=== PATIENT | female | born 1960 | race Caucasian/White ===

== ENCOUNTER → 2021-03-31 | Outpatient (CLI) | payer OTHER ==
[2021-04-01 11:43] LABS: Candida species (DNA Probe) Negative (NEGATIVE); G. vaginalis (DNA Probe) Positive (NEGATIVE); T. vaginalis (DNA Probe) Negative (NEGATIVE)
[2021-04-02 04:08] LABS: CHLAMYDIA TRACHOMATIS, NAA Negative (Negative)
== END ==
LOC: LAB 12:00 → LAB SHORT 12:00
PROVIDERS: Physician Assistant
DX: R10.30 Lower abdominal pain, unspecified (principal)
CPT/HCPCS: 87480; 87491; 87510; 87591; 87660

== ENCOUNTER 2023-07-28 09:54 | Observation (INO) | payer OTHER ==
[~2023-07-28] VITALS: Ht 167.6 cm; Wt 56.0 kg
[2023-07-28] MEDS ORDERED: Trazodone HCl300 MG PO (10:30)
[2023-07-28] MEDS ORDERED: TRAM50 PO (10:30)
[2023-07-28] MEDS ORDERED: CYCL10 PO (10:31)
[2023-07-28 11:07] LABS: BASOPHILS ABSOLUTE AUTO 0.05 K/mm3 (0.00-0.23); BASOPHILS PERCENT AUTO 1 % (0-2); EOSINOPHILS ABSOLUTE AUTO 0.08 K/mm3 (0.00-0.68); EOSINOPHILS PERCENT AUTO 1 % (0-6); Hematocrit 38.4 % (33.0-51.0); Hemoglobin 12.7 g/dL (11.5-16.0); IMMATURE GRAN ABSOLUTE AUTO 0.01 K/mm3 (0.00-0.10); IMMATURE GRAN PERCENT AUTO 0 % (0-1); LYMPHOCYTES ABSOLUTE AUTO 1.53 K/mm3 (0.84-5.20); LYMPHOCYTES PERCENT AUTO 24 % (21-46); MONOCYTES PERCENT AUTO 10 % (4-13); Mean Corpuscular HGB 28.9 pg (26.0-34.0); Mean Corpuscular HGB Conc 33.1 g/dL (31.5-36.5); Mean Corpuscular Volume 87 fL (80-100); Mean Platelet Volume 8.8 fL (9.1-12.4); NEUTROPHILS ABSOLUTE AUTO 4.05 K/mm3 (1.96-9.15); NEUTROPHILS PERCENT AUTO 64 % (41-73); Platelet Count 303 K/mm3 (150-400); RDW Coefficient Variation 13.1 % (11.7-14.2); RDW Standard Deviation 41.1 fL (35.1-46.3); White Blood Cell Count 6.32 K/mm3 (4.00-11.30)
[2023-07-28 11:32] LABS: Albumin, Blood 3.8 g/dL (3.4-5.0); Albumin/Globulin Ratio 1.2 (0.8-1.8); Bilirubin, Total 0.7 mg/dL (0.1-1.0); Bun/Creatinine Ratio 13.6 (12.0-20.0); Calcium, Blood 9.3 mg/dL (8.5-10.1); Creatinine, Blood 0.74 mg/dL (0.40-1.00); Globulin, Blood 3.2 g/dL (2.2-4.0); Potassium, Blood 3.9 mmol/L (3.5-5.5)
[2023-07-28] MEDS ORDERED: Atarax10 MG (11:50)
[2023-07-28 17:25] VITALS: BP 143/106
--- NOTE | 2023-07-28 18:56 | NUR ---
LATE ENTRY/1715: RECEIVED REPORT FROM MEDICAL APPLIANCE MAKER. RECEIVED PT FROM ER VIA W/C. PLACED IN BED, MADE COMFORTABLE, ORIENTED TO ROOM & UNIT ROUTINE. IS A&O X 4, VSS, INDEPENDENT FOR RESTROOM USE, PLEASANT & COOPERATIVE WITH ALL CARE. MEDICATED FOR C/O PAIN PER EMAR WITH GOOD RELIEF STATED BY PT. REPORT GIVEN TO NOC RN AT 6014.
[2023-07-28 20:35] VITALS: BP 129/79
[2023-07-29 05:49] VITALS: BP 107/83
[2023-07-29 05:52] LABS: BASOPHILS ABSOLUTE AUTO 0.04 K/mm3 (0.00-0.23); BASOPHILS PERCENT AUTO 1 % (0-2); EOSINOPHILS ABSOLUTE AUTO 0.09 K/mm3 (0.00-0.68); EOSINOPHILS PERCENT AUTO 2 % (0-6); Hematocrit 37.9 % (33.0-51.0); Hemoglobin 12.5 g/dL (11.5-16.0); IMMATURE GRAN PERCENT AUTO 0 % (0-1); LYMPHOCYTES ABSOLUTE AUTO 1.81 K/mm3 (0.84-5.20); LYMPHOCYTES PERCENT AUTO 33 % (21-46); MONOCYTES ABSOLUTE AUTO 0.49 K/mm3 (0.16-1.47); MONOCYTES PERCENT AUTO 9 % (4-13); Mean Corpuscular HGB 28.9 pg (26.0-34.0); Mean Corpuscular Volume 88 fL (80-100); Mean Platelet Volume 8.8 fL (9.1-12.4); NEUTROPHILS ABSOLUTE AUTO 3.08 K/mm3 (1.96-9.15); NEUTROPHILS PERCENT AUTO 56 % (41-73); Platelet Count 281 K/mm3 (150-400); RDW Coefficient Variation 12.9 % (11.7-14.2); RDW Standard Deviation 41.3 fL (35.1-46.3); Red Blood Cell Count 4.33 M/mm3 (3.80-5.20); White Blood Cell Count 5.51 K/mm3 (4.00-11.30)
[2023-07-29 06:44] LABS: Albumin, Blood 3.5 g/dL (3.4-5.0); Albumin/Globulin Ratio 1.2 (0.8-1.8); Bilirubin, Total 0.6 mg/dL (0.1-1.0); Calcium, Blood 8.8 mg/dL (8.5-10.1); Creatinine, Blood 0.68 mg/dL (0.40-1.00); Globulin, Blood 2.9 g/dL (2.2-4.0); Potassium, Blood 3.9 mmol/L (3.5-5.5); Total Protein, Blood 6.4 g/dL (6.4-8.2)
--- NOTE | 2023-07-29 06:51 | NUR ---
SHIFT SUMMARY NEW IV PLACED PER PT REQUEST. PRN OXYCODONE GIVEN X1 FOR PAIN. NPO, NO OTHER EVENTS OVERNIGHT.
[2023-07-29 07:32] VITALS: BP 108/82
--- NOTE | 2023-07-29 08:30 | NUR ---
pt laying in bed wakes easily, a/ox4, pleasant and coopertive with care, follows commands well, states pain is ok this am, explained to her she can't have any more pain meds until after hidda scan, she verbalized understanding, lungs are clear t/o, on r/a, resp even and unlabored, no cough noted, hrr, no edema noted, ppp+2, cap refill<3sec, vs stable, afebrile, piv to rfa infusing ns @125ml/hr, site is clear and patent, btx4, abd flat soft nontender, voids without diff, skin c/w/d, maew, hong, call light in reach.
[2023-07-29 15:06] VITALS: BP 128/84
--- NOTE | 2023-07-29 16:34 | NUR ---
pt is able to have clear liquids, she became tearful not being able to eat, Dr. Edwards was contacted for diet, mri was ordered for tomorrow am, may be done tonight, report given to Mary SANFORD. call light in reach.
--- NOTE | 2023-07-29 18:16 | NUR ---
note PT ALERT AND ORINETED. DR TOMLINSON CALLED AFTER HYDA SCAN TO INQUIRE IF PT CAN EAT. ORDER RECEIVED. PT TRYING CLEAR LIQUIDS TO START. NO CHANGE TO HER ABD SORENESS/PAIN AFTER EATING. SHE IS GOING VERY SLOW. DENIED NAUSEA AFTER EATING. VSS. CONTINUE POC.
[2023-07-29 19:42] VITALS: BP 131/84
[2023-07-30 04:47] VITALS: BP 112/71
[2023-07-30 05:50] LABS: BASOPHILS ABSOLUTE AUTO 0.03 K/mm3 (0.00-0.23); BASOPHILS PERCENT AUTO 1 % (0-2); EOSINOPHILS ABSOLUTE AUTO 0.08 K/mm3 (0.00-0.68); EOSINOPHILS PERCENT AUTO 1 % (0-6); Hematocrit 34.5 % (33.0-51.0); Hemoglobin 11.3 g/dL (11.5-16.0); IMMATURE GRAN ABSOLUTE AUTO 0.02 K/mm3 (0.00-0.10); IMMATURE GRAN PERCENT AUTO 0 % (0-1); LYMPHOCYTES ABSOLUTE AUTO 1.35 K/mm3 (0.84-5.20); LYMPHOCYTES PERCENT AUTO 21 % (21-46); MONOCYTES ABSOLUTE AUTO 0.71 K/mm3 (0.16-1.47); MONOCYTES PERCENT AUTO 11 % (4-13); Mean Corpuscular HGB 28.6 pg (26.0-34.0); Mean Corpuscular HGB Conc 32.8 g/dL (31.5-36.5); Mean Corpuscular Volume 87 fL (80-100); NEUTROPHILS ABSOLUTE AUTO 4.15 K/mm3 (1.96-9.15); NEUTROPHILS PERCENT AUTO 65 % (41-73); Platelet Count 267 K/mm3 (150-400); RDW Coefficient Variation 12.8 % (11.7-14.2); Red Blood Cell Count 3.95 M/mm3 (3.80-5.20); White Blood Cell Count 6.34 K/mm3 (4.00-11.30)
[2023-07-30 06:08] LABS: Albumin/Globulin Ratio 1.2 (0.8-1.8); Bilirubin, Total 0.5 mg/dL (0.1-1.0); Bun/Creatinine Ratio 12.7 (12.0-20.0); Calcium, Blood 8.1 mg/dL (8.5-10.1); Creatinine, Blood 0.63 mg/dL (0.40-1.00); Globulin, Blood 2.6 g/dL (2.2-4.0); Total Protein, Blood 5.6 g/dL (6.4-8.2)
--- NOTE | 2023-07-30 06:32 | NUR ---
SHIFT SUMMARY PRN OXYCODONE GIVEN X1 PER REQUEST FOR PAIN WITH POSITIVE EFFECT. PT IV IN THE R FOREARM INFILTRATED. NEW IV PLACED IN THE RIGHT HAND. NO N/V, NO OTHER EVENTS OVERNIGHT. NPO AT MIDNIGHT FOR MRCP TODAY.
[2023-07-30 07:17] VITALS: BP 120/76
--- NOTE | 2023-07-30 09:00 | NUR ---
pt sleeping, wakes easily, states she had a good nights rest last night, a/ox4, pleasant and cooperative with care, follows commands well, denies pain this am, lungs are clear t/o, resp even and unlabored, no cough noted, on r/a, hrr, no edema noted, piv to right wrist, ns infusing as ordered, btx4, abd flat soft nontender, voids without diff, skin c/w/d, maew, up ad erick in room, hong, call light in reach.
--- NOTE | 2023-07-30 12:05 | NUR ---
pt had her mrcp, Dr. Edwards in room talking to her, gave a verbal order for regular food, ordered lunch. she wants to keep her iv fluids off at this time as she is drinking. call light in reach.
[2023-07-30] MEDS ORDERED: ONDA4 PO (14:16)
--- NOTE | 2023-07-30 14:45 | NUR ---
Pt has been discharged to home, iv removed intact, went over discharge instructions with her, she verbalized understanding, new med faxed to [email or web address]. left via wheelchair with event planning manager and friend in attendence.
== END 2023-07-30 14:48 | disposition home or self-care (01) ==
LOC: ER 09:54 → MEDS 09:55
PROVIDERS: Family Medicine; ADMIT Internal Medicine
DX: K82.8 Other specified diseases of gallbladder (principal); R10.11 Right upper quadrant pain; F10.11 Alcohol abuse, in remission; F17.201 Nicotine dependence, unspecified, in remission; F41.9 Anxiety disorder, unspecified; F32.A Depression, unspecified
CPT/HCPCS: 36415; 74176; 74181; 76705; 78226; 80053; 83690; 85025; 93005; 93010; 96374; 96375; 99285-25; A9270; A9537; G0378; J1885; J3010; J7030

== ENCOUNTER 2023-09-05 12:39 | Observation (INO) | payer OTHER ==
[~2023-09-05] VITALS: Ht 167.6 cm; Wt 54.3 kg
[~2023-09-05 12:39] MED LIST: Atarax10 MG PO; CYCL10 PO; ONDA4 PO; TRAM50 PO; TRAZ100 PO
[2023-09-05 13:24] LABS: Source, Urine Clean Catch
[2023-09-05 13:26] LABS: BASOPHILS ABSOLUTE AUTO 0.04 K/mm3 (0.00-0.23); BASOPHILS PERCENT AUTO 1 % (0-2); EOSINOPHILS ABSOLUTE AUTO 0.04 K/mm3 (0.00-0.68); EOSINOPHILS PERCENT AUTO 1 % (0-6); Hematocrit 32.3 % (33.0-51.0); Hemoglobin 11.3 g/dL (11.5-16.0); IMMATURE GRAN ABSOLUTE AUTO 0.01 K/mm3 (0.00-0.10); IMMATURE GRAN PERCENT AUTO 0 % (0-1); LYMPHOCYTES ABSOLUTE AUTO 1.03 K/mm3 (0.84-5.20); LYMPHOCYTES PERCENT AUTO 14 % (21-46); MONOCYTES ABSOLUTE AUTO 0.61 K/mm3 (0.16-1.47); MONOCYTES PERCENT AUTO 9 % (4-13); Mean Corpuscular HGB 29.7 pg (26.0-34.0); Mean Corpuscular Volume 85 fL (80-100); Mean Platelet Volume 9.1 fL (9.1-12.4); NEUTROPHILS ABSOLUTE AUTO 5.43 K/mm3 (1.96-9.15); NEUTROPHILS PERCENT AUTO 76 % (41-73); Platelet Count 353 K/mm3 (150-400); RDW Coefficient Variation 14.8 % (11.7-14.2); RDW Standard Deviation 45.3 fL (35.1-46.3); White Blood Cell Count 7.16 K/mm3 (4.00-11.30)
[2023-09-05 13:28] LABS: Appearance, Urine Clear (Clear); Bilirubin, Urine Neg (Neg); Blood, Urine 1+ (Neg); Color, Urine Yellow (P-Yellow); Glucose Qualitative, Urine Neg (Neg); Ketones, Urine Neg (Neg); Leukocyte Esterase, Urine Neg (Neg); Nitrite, Urine Neg (Neg); Protein, Urine Neg (Neg); Urobilinogen, Urine NORM (Normal)
[2023-09-05 13:39] LABS: Bacteria Rare /hpf; Squamous Epithelial Cells Rare /hpf (Few); White Blood Cells, Urine 0-2 /hpf (0-5)
[2023-09-05 13:55] LABS: Albumin, Blood 3.8 g/dL (3.4-5.0); Albumin/Globulin Ratio 1.2 (0.8-1.8); Bun/Creatinine Ratio 28.8 (12.0-20.0); Calcium, Blood 9.1 mg/dL (8.5-10.1); Creatinine, Blood 0.45 mg/dL (0.40-1.00); Globulin, Blood 3.2 g/dL (2.2-4.0)
[2023-09-05] MEDS ORDERED: CARAFATE1 GM/10 M1 (21:09)
--- NOTE | 2023-09-06 03:35 | NUR ---
ASSUMED CARE PATIENT ARRIVED FROM ER VIA WHEELCHAIR. PATIENT ABLE TO STAND AND TRANSFER TO BED INDEPENDENTLY. BELONGINGS IN ROOM WITH PATIENT. NO FAMILY OR VISITORS. 20G TO RT WRIST SALINE LOCKED. REPORT RECEIVED FROM CLARIBEL WITT.
[2023-09-06 03:56] VITALS: BP 112/70
[2023-09-06 04:07] LABS: BASOPHILS ABSOLUTE AUTO 0.03 K/mm3 (0.00-0.23); BASOPHILS PERCENT AUTO 1 % (0-2); EOSINOPHILS ABSOLUTE AUTO 0.11 K/mm3 (0.00-0.68); EOSINOPHILS PERCENT AUTO 2 % (0-6); Hematocrit 30.9 % (33.0-51.0); Hemoglobin 10.6 g/dL (11.5-16.0); IMMATURE GRAN ABSOLUTE AUTO 0.01 K/mm3 (0.00-0.10); IMMATURE GRAN PERCENT AUTO 0 % (0-1); LYMPHOCYTES ABSOLUTE AUTO 1.56 K/mm3 (0.84-5.20); LYMPHOCYTES PERCENT AUTO 34 % (21-46); MONOCYTES ABSOLUTE AUTO 0.67 K/mm3 (0.16-1.47); MONOCYTES PERCENT AUTO 15 % (4-13); Mean Corpuscular HGB 29.4 pg (26.0-34.0); Mean Corpuscular HGB Conc 34.3 g/dL (31.5-36.5); Mean Corpuscular Volume 86 fL (80-100); Mean Platelet Volume 8.8 fL (9.1-12.4); NEUTROPHILS ABSOLUTE AUTO 2.25 K/mm3 (1.96-9.15); NEUTROPHILS PERCENT AUTO 49 % (41-73); Platelet Count 312 K/mm3 (150-400); Red Blood Cell Count 3.61 M/mm3 (3.80-5.20); White Blood Cell Count 4.63 K/mm3 (4.00-11.30)
[2023-09-06 04:29] LABS: Albumin, Blood 3.1 g/dL (3.4-5.0); Albumin/Globulin Ratio 1.1 (0.8-1.8); Bilirubin, Total 4.9 mg/dL (0.1-1.0); Bun/Creatinine Ratio 17.5 (12.0-20.0); Calcium, Blood 8.1 mg/dL (8.5-10.1); Creatinine, Blood 0.46 mg/dL (0.40-1.00); Globulin, Blood 2.7 g/dL (2.2-4.0); Potassium, Blood 3.4 mmol/L (3.5-5.5); Total Protein, Blood 5.8 g/dL (6.4-8.2)
--- NOTE | 2023-09-06 06:24 | NUR ---
SHIFT SUMMARY PATIENT SLEPT T/O SHIFT SINCE ARRIVING FROM ER. NO URINE OUTPUT AND NO BM. NO FAMILY OR VISITORS TO BEDSIDE. NO OTHER CHANGES THIS SHIFT.
[2023-09-06 08:30] VITALS: BP 122/75
--- NOTE | 2023-09-06 09:07 | NUR ---
AM NOTE... ASSUMED CARE OF PT AT 0700. PT IS A&Ox4. PT WAS SLEEPING PRIOR TO THIS ASSESSMENT. VS STABLE. PT IS TO HAVE AN MRI AROUND 1200 TODAY. PT CURRENTLY DENIES ANY N/V. SHE HAS MINIMAL ABD PAIN AT THIS TIME. CALL LIGHT IN REACH WILL CONTINUE TO MONITOR.
[2023-09-06 09:42] VITALS: BP 117/83
--- NOTE | 2023-09-06 13:31 | NUR ---
Pt. is awake in bed and welcomes my visit. Pts. mother is at bedside. Pt. is pleasant but unsettled by her unknown diagnosis and the lack of specialists that are locally available. Listen with empathy and a calming presence. Seek to normalize the Pt. experience. Pt. displays evidence of awareness and engagement. Prayed with the Pt. Pt. and Pts. mother verbalize gratitude for the Spiritual Care visit.
[2023-09-06 16:57] VITALS: BP 116/78
--- NOTE | 2023-09-06 17:16 | NUR ---
SHIFT SUMMARY... NO ACUTE NEGATIVE CHANGES NOTED THIS SHIFT. PTS VS STABLE. PT C/O OF 05/11 RUQ PAIN, SHE WAS MEDICATED PER EMAR WITH IV FENTANYL WITH GOOD RESULTS. PT HAS BEEN UP IN THE ROOM WALKING OUT OF THE UNIT AND TOLERATING THIS WELL. WILL CONTINUE TO MONITOR UNTIL REPORT IS GIVEN TO ONCOMING RN.
[2023-09-06 19:55] VITALS: BP 115/76
[2023-09-07 03:25] LABS: BASOPHILS ABSOLUTE AUTO 0.03 K/mm3 (0.00-0.23); BASOPHILS PERCENT AUTO 0 % (0-2); EOSINOPHILS ABSOLUTE AUTO 0.09 K/mm3 (0.00-0.68); EOSINOPHILS PERCENT AUTO 1 % (0-6); Hematocrit 31.6 % (33.0-51.0); Hemoglobin 10.9 g/dL (11.5-16.0); IMMATURE GRAN ABSOLUTE AUTO 0.02 K/mm3 (0.00-0.10); IMMATURE GRAN PERCENT AUTO 0 % (0-1); LYMPHOCYTES ABSOLUTE AUTO 1.22 K/mm3 (0.84-5.20); LYMPHOCYTES PERCENT AUTO 17 % (21-46); MONOCYTES ABSOLUTE AUTO 0.85 K/mm3 (0.16-1.47); MONOCYTES PERCENT AUTO 12 % (4-13); Mean Corpuscular HGB 29.1 pg (26.0-34.0); Mean Corpuscular HGB Conc 34.5 g/dL (31.5-36.5); Mean Corpuscular Volume 85 fL (80-100); Mean Platelet Volume 8.9 fL (9.1-12.4); NEUTROPHILS ABSOLUTE AUTO 4.95 K/mm3 (1.96-9.15); NEUTROPHILS PERCENT AUTO 69 % (41-73); Platelet Count 346 K/mm3 (150-400); RDW Coefficient Variation 15.1 % (11.7-14.2); Red Blood Cell Count 3.74 M/mm3 (3.80-5.20); White Blood Cell Count 7.16 K/mm3 (4.00-11.30)
[2023-09-07 03:47] LABS: Albumin/Globulin Ratio 1.1 (0.8-1.8); Bilirubin, Direct 4.4 mg/dL (0.0-0.3); Bilirubin, Total 4.9 mg/dL (0.1-1.0); Bun/Creatinine Ratio 19.1 (12.0-20.0); Calcium, Blood 8.3 mg/dL (8.5-10.1); Creatinine, Blood 0.52 mg/dL (0.40-1.00); Globulin, Blood 2.7 g/dL (2.2-4.0); Potassium, Blood 3.7 mmol/L (3.5-5.5); Total Protein, Blood 5.7 g/dL (6.4-8.2)
[2023-09-07 04:59] VITALS: BP 125/67
--- NOTE | 2023-09-07 06:43 | NUR ---
SHIFT SUMMARY PATIENT SLEPT T/O SHIFT. PATIENT EXPERIENCED RUQ AFTER EATING REGULAR DIET DINNER. MEDICATED WITH FENTANYL 50MCG IV X 2, TORADOL 30MG IV X 1, AND TRAMADOL 100MG PO X 1 THIS SHIFT. DIET CHANGED TO LOW FAT WITH EDUCATION ON POSSIBLE NEED TO DECREASE TO CLEAR LIQUIDS IF PAIN PERSISTS. NO OTHER CHANGES THIS SHIFT.
--- NOTE | 2023-09-07 08:23 | NUR ---
AM NOTE... ASSUMED CARE OF PT AT 0700. PT IS A&Ox4 AND IND IN THE ROOM. PT C/O OF 4/10 RUQ PAIN, MEDICATED PER EMAR. PT IS ON RA WITH O2 SATS>95% L/S CLEAR T/O. NO SWELLING OR EDEMA IS NOTED ON THIS ASSESSMENT. VS STABLE. PLANS TO TRANSFER TO A HIGHER LEVEL OF CARE. WILL CONTINUE TO MONITOR.
[2023-09-07 09:53] VITALS: BP 104/70
--- NOTE | 2023-09-07 13:24 | NUR ---
PT TRANSFER.... REPORT GIVEN TO KERRIE SANFORD ON MEDICAL FLOOR. ALL OF THE PT'S BELONGINGS PACKED BY THE PT AND SENT WITH THE PT AT THE TIME OF TRANSFER.
[2023-09-07 13:42] VITALS: BP 116/80
--- NOTE | 2023-09-07 14:55 | NUR ---
ASSUMED CARE OF PATIENT UPON HER TRANSFER FROM ICU 14 AT 1335. SHE IS A&O X 4, INDEPENDENT IN THE ROOM. STATED HER PAIN IS "MANAGEABLE" AT THIS TIME. ORIENTED TO ROOM, CALL LIGHT, UNIT ROUTINE. WILL CONTINUE TO MONITOR.
[2023-09-07 15:21] VITALS: BP 116/80
--- NOTE | 2023-09-07 15:40 | NUR ---
PT IS A COBRA TRANSFER TO [facility] IN [place], COBRA PACKET COMPLETED, SIGNATURE OBTAINED, TRANSPORT SET UP FOR 1630, REPORT TO BE CALLED BY BEDSIDE RN TO [phone]
--- NOTE | 2023-09-07 16:34 | NUR ---
PATIENT TRANSFERRED TO [facility] FOR POTENTIAL ERCP. MEDIATED FOR PAIN PRIOR TO TRANSFER. GAVE TELEPHONE REPORT TO REGGIE SANFORD AT 1625. OFF UNIT VIA AMBULANCE AT 1631. NO PERSONAL BELONGINGS LEFT BEHIND IN ROOM.
== END 2023-09-07 16:28 | disposition short-term general hospital (02) ==
LOC: ER 12:39 → ERHOLD 12:40 → ICUE 12:40 → MEDS 09-07 13:35
PROVIDERS: Emergency Medicine; Family Medicine; Internal Medicine; ADMIT Internal Medicine
DX: R17 Unspecified jaundice (principal); Z79.899 Other long term (current) drug therapy; E80.6 Other disorders of bilirubin metabolism; F10.11 Alcohol abuse, in remission; F32.9 Major depressive disorder, single episode, unspecified; G89.29 Other chronic pain
CPT/HCPCS: 36415; 74181; 76705; 80053; 81001; 82248; 83690; 85025; 96361; 96374; 96375; 96376; 99285-25; A9270; G0378; J1885; J2270; J3010; J7030

== ENCOUNTER 2023-09-18 17:32 | Emergency (ER) | payer OTHER ==
[~2023-09-18] VITALS: Ht 167.6 cm; Wt 52.6 kg
[~2023-09-18 17:32] MED LIST changes: +CARAFATE1 GM/10 M1
[2023-09-18 18:30] LABS: BASOPHILS ABSOLUTE AUTO 0.01 K/mm3 (0.00-0.23); BASOPHILS PERCENT AUTO 0 % (0-2); EOSINOPHILS ABSOLUTE AUTO 0.01 K/mm3 (0.00-0.68); EOSINOPHILS PERCENT AUTO 0 % (0-6); Hematocrit 39.2 % (33.0-51.0); IMMATURE GRAN ABSOLUTE AUTO 0.01 K/mm3 (0.00-0.10); IMMATURE GRAN PERCENT AUTO 0 % (0-1); LYMPHOCYTES ABSOLUTE AUTO 0.36 K/mm3 (0.84-5.20); LYMPHOCYTES PERCENT AUTO 5 % (21-46); MONOCYTES ABSOLUTE AUTO 0.08 K/mm3 (0.16-1.47); MONOCYTES PERCENT AUTO 1 % (4-13); Mean Corpuscular HGB 29.8 pg (26.0-34.0); Mean Corpuscular HGB Conc 33.2 g/dL (31.5-36.5); Mean Corpuscular Volume 90 fL (80-100); NEUTROPHILS ABSOLUTE AUTO 6.75 K/mm3 (1.96-9.15); NEUTROPHILS PERCENT AUTO 94 % (41-73); Platelet Count 409 K/mm3 (150-400); RDW Coefficient Variation 14.3 % (11.7-14.2); RDW Standard Deviation 47.3 fL (35.1-46.3); Red Blood Cell Count 4.36 M/mm3 (3.80-5.20); White Blood Cell Count 7.22 K/mm3 (4.00-11.30)
[2023-09-18 19:13] LABS: Albumin, Blood 3.7 g/dL (3.4-5.0); Bilirubin, Total 1.9 mg/dL (0.1-1.0); Calcium, Blood 9.2 mg/dL (8.5-10.1); Creatinine, Blood 0.59 mg/dL (0.40-1.00); Globulin, Blood 3.8 g/dL (2.2-4.0); Potassium, Blood 3.3 mmol/L (3.5-5.5); Total Protein, Blood 7.5 g/dL (6.4-8.2)
[2023-09-18 21:17] VITALS: BP 103/57
== END 2023-09-19 00:06 | disposition short-term general hospital (02) ==
LOC: ER 17:32
PROVIDERS: Physician Assistant
DX: K83.09 Other cholangitis (principal); K85.90 Acute pancreatitis without necrosis or infection, unspecified; R00.0 Tachycardia, unspecified; R74.01 Elevation of levels of liver transaminase levels; Z96.89 Presence of other specified functional implants; Z79.899 Other long term (current) drug therapy
CPT/HCPCS: 36415; 74177; 80053; 83605; 83690; 85025; 87040; 87077; 87186; 93005; 93010; 96361; 96374; 96375; 99285-25; J0153; J1170; J2405; J2543; J7030; Q9967

== ENCOUNTER 2023-10-19 07:47 | Day surgery (SDC) | payer OTHER ==
[2023-10-19] VITALS (9 sets, daily range): BP systolic 94–123; BP diastolic 51–80
[~2023-10-19] VITALS: Ht 167.6 cm; Wt 54.5 kg
[~2023-10-19 07:47] MED LIST changes: +Atarax10 MG; +CYCL10; +METO25ER; +OXAYDO5 M6; +TRAZ50; +VALA500
--- NOTE | 2023-10-19 11:54 | NUR ---
Patient up to Ambulate independently. Gait steady. Discharge instructions reviewed with patient. Patient verbalizes understanding. Copy given to patient to take home. Dressing to procedure site clean, dry, intact with no visible drainage, swelling, erythema or bruising noted. Patient States Post-Procedure ride home has been arranged. Discharged via wheelchair to private car for ride home.
== END 2023-10-19 12:00 | disposition home or self-care (01) ==
LOC: ORSCMMR 07:47 → ORD 08:00 → ORSCMMR 09:30 → ORD 09:30 → ORSCMMR 12:00
PROVIDERS: Surgery
PROC: 0JH63WZ Insertion of Totally Implantable Vascular Access Device into Chest Subcutaneous Tissue and Fascia, Percutaneous Approach (ICD-10-PCS; principal; 2023-10-19 09:30)
PROC: 05HM33Z Insertion of Infusion Device into Right Internal Jugular Vein, Percutaneous Approach (ICD-10-PCS; principal; 2023-10-19 09:30)
PROC: B543ZZA Ultrasonography of Right Jugular Veins, Guidance (ICD-10-PCS; principal; 2023-10-19 09:30)
DX: C25.0 Malignant neoplasm of head of pancreas (principal); F32.A Depression, unspecified; K21.9 Gastro-esophageal reflux disease without esophagitis; F41.9 Anxiety disorder, unspecified; Z79.899 Other long term (current) drug therapy
CPT/HCPCS: 77001; A9270; C1788; J0690; J1100; J1642; J2250; J2371; J2405; J2704; J3010; J7120

== ENCOUNTER → 2024-03-18 | Outpatient (CLI) | payer OTHER ==
[2024-03-28 17:06] LABS: HPV HIGH RISK BY TMA Not Detected; HPV SOURCE Cervical
== END ==
LOC: LAB SHORT 12:53 → LAB 12:53
PROVIDERS: Family Medicine
DX: Z01.419 Encounter for gynecological examination (general) (routine) without abnormal findings (principal)
CPT/HCPCS: 87624; G0123

== ENCOUNTER → 2024-07-08 | Outpatient (CLI) | payer OTHER | END | disposition home or self-care (01) | LOC: LAB SHORT 12:33 → LAB 12:33 | DX: C25.9 Malignant neoplasm of pancreas, unspecified (principal) | CPT/HCPCS: 85379 ==

== ENCOUNTER → 2025-04-30 | Outpatient (CLI) | payer OTHER ==
[2025-04-30 16:15] LABS: Bacterial Vaginosis PCR Negative (NEGATIVE); Candida Group, PCR NOT DETECTED (NOT DETECT); Candida glabrata-krusei, PCR NOT DETECTED (NOT DETECT)
== END | disposition home or self-care (01) ==
LOC: LAB SHORT 13:44 → LAB 13:44
PROVIDERS: Family Medicine
DX: N89.8 Other specified noninflammatory disorders of vagina (principal)
CPT/HCPCS: 81515